=== PATIENT | male | born 1985 | race African-American/Black ===

== ENCOUNTER 2017-03-18 16:42 | Emergency (ER) | payer OTHER ==
[~2017-03-18] VITALS: Ht 180.3 cm; Wt 63.6 kg
[~2017-03-18 16:42] MED LIST: ALBU0.086 INH; ALBU1AER INH; BENZ100 PO; IBUP800T23 PO; MMW SWISH-SPIT; PRED20 PO
[2017-03-18 16:47] VITALS: BP 120/70; PULSE 60; RESP 18; TEMP 98.2; O2SAT 99
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
[2017-03-18] MEDS ORDERED: ACETAMINOPHEN/HYDROcodone 325 MG/5 MG TAB PO ONE (18:45)
--- NOTE | 2017-03-18 20:17 | RADRPT ---
EXAM DATE/TIME: 03/18/2017 19:46 [facility] COMPARISON: FOOT RIGHT COMPLETE ([id number]), March 18, 2017, 17:25. INDICATIONS : Post reduction right foot. MEDICAL HISTORY : None. SURGICAL HISTORY : None. ENCOUNTER: Subsequent ACUITY: 1 day PAIN SCORE: 10/10 LOCATION: Right distal foot. FINDINGS: Since the previous examination there has been successful reduction of the dislocation of the fourth M TP joint. Dislocation remains at the second MTP joint. Fractures again noted involving the head of th e third metatarsal. CONCLUSION: Successful reduction of the fourth MTP joint. Persistent dislocation at the second MTP joint. Delvin Estrella Jr., MD on March 18, 2017 at 20:14 Board Certified Radiologist. This report was verified electronically.
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
[2017-03-18] MEDS ORDERED: NORC5TAB PO (20:19)
[2017-03-18] MEDS ORDERED: ROBA500T PO (20:19)
[2017-03-18] MEDS ORDERED: IBUP1TAB7 PO (20:19)
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
--- NOTE | 2017-03-18 20:59 | RADRPT ---
EXAM DATE/TIME: 03/18/2017 20:22 [facility] COMPARISON: No previous studies available for comparison. INDICATIONS : Post reduction right 2nd digit dislocation MEDICAL HISTORY : None. SURGICAL HISTORY : None. ENCOUNTER: Initial ACUITY: 1 day PAIN SCORE: 10/10 LOCATION: Right 2nd digit FINDINGS: 2 views of the right foot show successful reduction of the second MTP joint dislocation. Fracture aga in noted involving the third metatarsal head. CONCLUSION: Successful reduction of the second MTP joint dislocation. Delvin Estrella Jr., MD on March 18, 2017 at 20:56 Board Certified Radiologist. This report was verified electronically.
== END 2017-03-18 20:59 | disposition home or self-care (01) ==
LOC: NEPK 16:42
DX: S92.331A Displaced fracture of third metatarsal bone, right foot, initial encounter for closed fracture (principal); S93.104A Unspecified dislocation of right toe(s), initial encounter; M54.9 Dorsalgia, unspecified; J45.909 Unspecified asthma, uncomplicated; V43.52XA Car driver injured in collision with other type car in traffic accident, initial encounter
CPT/HCPCS: 28660; 70450; 71045; 72125; 73610; 73620; 73630; 99284; E0113